=== PATIENT | female | born 1955 | race Caucasian/White ===

== ENCOUNTER 2017-04-20 14:26 | Outpatient (CLI) | payer BC | END 2017-04-20 14:27 | disposition home or self-care (01) | LOC: BICMAMMO 14:26 | PROVIDERS: ATTEND Obstetrics & Gynecology | DX: Z12.31 Encounter for screening mammogram for malignant neoplasm of breast (principal); Z80.3 Family history of malignant neoplasm of breast | CPT/HCPCS: 77063; 77067 ==

== ENCOUNTER 2018-04-21 14:47 | Outpatient (CLI) | payer MEDICARE, BC ==
--- NOTE | 2018-04-21 17:00 | BD ---
BONE DENSITOMETRY USING DEXA: Date: 04/21/18 HISTORY: Postmenopausal screening for osteoporosis. FINDINGS: Lumbar Spine: BMD (g/cm2) L1 0.820 T-Score: -1.5 Z-Score: 0.0 L2 0.875 T-Score: -1.4 Z-Score: 0.4 L3 0.888 T-Score: -1.8 Z-Score: 0.1 L4 0.896 T-Score: -1.5 Z-Score: 0.4 L1-L4 0.873 T-Score: -1.6 Z-Score: 0.2 Femoral Neck: 0.761 T-Score: -0.8 Z-Score: 0.7 Total Femur: 0.968 T-Score: 0.2 Z-Score: 1.5 There has been interval reduction of 8% in the bone mineral density of the lumbar spine and an improv ement of 3.3% in the bone mineral density of the proximal femur since 10/18/03. The 10 year fracture risk for a major osteoporotic fracture is 14% and for a hip fracture is 0.5%. IMPRESSION: Osteopenia. POS: OFF
== END 2018-04-21 14:48 | disposition home or self-care (01) ==
LOC: BICMAMMO 14:47
PROVIDERS: ATTEND Obstetrics & Gynecology
DX: Z12.31 Encounter for screening mammogram for malignant neoplasm of breast (principal); M85.88 Other specified disorders of bone density and structure, other site; Z80.3 Family history of malignant neoplasm of breast
CPT/HCPCS: 77063; 77067; 77080

== ENCOUNTER 2019-11-09 08:09 | Outpatient (CLI) | payer MEDICARE, BC ==
--- NOTE | 2019-11-09 08:35 | ULT ---
ULTRASOUND ABDOMINAL AORTA: HISTORY: Screening for abdominal aortic aneurysm FINDINGS: The abdominal aortic measurements are as follows: Proximal: 2.6 x 1.9cm Mid: 2.2 x 2.4cm Distal: 1.7 x 1.9cm The right common iliac artery measures 1.1 x 1.6 cm in the left common iliac artery measures 1.2 x 1. 2 cm IMPRESSION: No evidence of abdominal aortic aneurysm.
== END 2019-11-09 08:10 | disposition home or self-care (01) ==
LOC: BICULT 08:09
PROVIDERS: ATTEND Internal Medicine
DX: Z13.6 Encounter for screening for cardiovascular disorders (principal)
CPT/HCPCS: 76706

== ENCOUNTER 2021-11-12 13:37 | Outpatient (CLI) | payer MEDICARE, BC | END 2021-11-12 13:38 | disposition home or self-care (01) | LOC: BICMAMMO 13:37 | PROVIDERS: ATTEND Internal Medicine | DX: Z12.31 Encounter for screening mammogram for malignant neoplasm of breast (principal); Z13.820 Encounter for screening for osteoporosis; Z78.0 Asymptomatic menopausal state; M85.89 Other specified disorders of bone density and structure, multiple sites | CPT/HCPCS: 77063; 77067; 77080 ==

== ENCOUNTER 2022-11-25 12:31 | Outpatient (CLI) | payer MEDICARE, BC | END 2022-11-25 12:32 | disposition home or self-care (01) | LOC: BICMAMMO 12:31 | PROVIDERS: ATTEND Internal Medicine | DX: Z12.31 Encounter for screening mammogram for malignant neoplasm of breast (principal); Z80.3 Family history of malignant neoplasm of breast | CPT/HCPCS: 77063; 77067 ==

== ENCOUNTER 2024-12-01 09:36 | Outpatient (CLI) | payer MEDICARE | END 2024-12-01 09:37 | disposition home or self-care (01) | LOC: BICMAMMO 09:36 | PROVIDERS: ATTEND Student in an Organized Health Care Education/Training Program | DX: Z12.31 Encounter for screening mammogram for malignant neoplasm of breast (principal); Z80.3 Family history of malignant neoplasm of breast | CPT/HCPCS: 77063; 77067 ==